=== PATIENT | male | born 1995 | race Caucasian/White ===

== ENCOUNTER 2017-04-14 22:13 | Observation (INO) | payer BC ==
[~2017-04-14] VITALS: Ht 175.3 cm; Wt 122.9 kg
[2017-04-14 23:25] LABS: TROP-I INTERPRETATION NEGATIVE; TROPONIN-I < 0.01 ng/mL (0.0-0.30)
[2017-04-14 23:29] LABS: CHLORIDE 107 mEq/L (99-109); POTASSIUM 4.1 mEq/L (3.7-5.4); SODIUM 138 mEq/L (136-147)
[2017-04-14 23:31] LABS: GLUCOSE 89 mg/dL (70-99)
[2017-04-14 23:32] LABS: ANION GAP 14 MEQ/L (2-14)
[2017-04-14 23:36] LABS: UREA NITROGEN (BUN) 21 mg/dL (9-23)
[2017-04-14 23:38] LABS: GFR ESTIMATE (CALCULATED) > 59 mL/min/
[2017-04-15 00:02] LABS: MCH 33.6 PG (29.0-34.0); MCHC 37.3 G/DL (30.0-36.0); MCV 90.1 FL (86-99); MEAN PLAT.VOLUME 10.8 uM^3 (9.0-12.4); PLATELET COUNT 254 K/uL (156-360); RBC DIS.WIDTH-CV 12.4 % (11.8-14.6); RBC DIS.WIDTH-SD 40.5 % (39-53); RED BLOOD COUNT 4.44 M/uL (4.00-5.50); WHITE BLOOD COUNT 10.6 K/uL (4.1-10.2)
[2017-04-15 00:07] LABS: D-DIMER ELISA < 150.00 ng/mLDDU (<230)
[2017-04-15] MEDS ORDERED: SINGULAIR10 MG PO (00:50)
[2017-04-15] MEDS ORDERED: RHINOCORT ALL8.43 ML BOTH NARES (00:51)
[2017-04-15] MEDS ORDERED: SYMBICORT60 INHALAT IH (00:52)
[2017-04-15 02:59] VITALS: BP 140/67
[2017-04-15 05:56] LABS: HDL CHOLESTEROL 20 MG/DL (Desirable>=40); NON-HDL CHOLESTEROL 161 mg/dL (Desirable<160); TOTAL CHOLESTEROL 181 mg/dL (Desirable<200); TRIGLYCERIDES 942 MG/DL (Normal: <150)
[2017-04-15 08:12] VITALS: BP 132/69
[2017-04-15 11:33] VITALS: BP 153/81
[2017-04-15 13:28] LABS: TROP-I INTERPRETATION NEGATIVE; TROPONIN-I < 0.01 ng/mL (0.0-0.30)
[2017-04-15] MEDS ORDERED: FENOFIBRATE145 M1 PO (13:38)
== END 2017-04-15 16:40 | disposition home or self-care (01) ==
LOC: EME 22:13 → ENPENDDIS 04-15 → EDOF 04-15 00:50 → ENRESERV 04-15 00:52 → 5WEST 04-15 02:41
PROVIDERS: Physician Assistant Medical
DX: R07.9 Chest pain, unspecified (principal); J45.909 Unspecified asthma, uncomplicated; Z82.49 Family history of ischemic heart disease and other diseases of the circulatory system; E66.01 Morbid (severe) obesity due to excess calories; Z79.51 Long term (current) use of inhaled steroids; Z83.3 Family history of diabetes mellitus
CPT/HCPCS: 71020; 80048; 80061; 84484; 85027; 85379; 93005; 94640; 99202; 99281; 99285; G0378